=== PATIENT | male | born 1970 | race Caucasian/White ===

== ENCOUNTER → 2017-05-08 | Outpatient (CLI) | payer OTHER ==
[~2017-05-08] MED LIST: ADVIL200 M2 PO; ALLERGY RELIEF10 M3 PO; ASPIRIN81 M1 PO; BLOOD PRESSURE MED PO; CIPRO PO; CLARITIN10 M2 PO; EC-NAPROSYN500 MG PO; ECOTRIN81 M1 PO; FLAGYL PO; FLAGYL250 M1 PO; FLEXERIL10 MG PO; FLOMAX0.4 M1 PO; GUANFACINE HCL E2 MG PO; HCTZ PO; HYDROCHLOROTHIA25 MG PO; IBUPROFEN800 MG PO; LEVAQUIN PO; LISINOPRIL20 MG PO; LORTAB 7.5-5001 TAB PO; METAMUCIL1 PKT PO; MILK OF MAGNESIA PO; PHENERGAN25 M1 PO; PREVACID PO; PRINIVIL20 M1 PO; PRINIVIL40 MG PO; QUETIAPINE FUM300 MG PO; REVIA50 MG PO; SMZ/TMP DS 800/160; TYLENOL ARTHRITIS PO; TYLENOL325 M1 PO; VOLTAREN50 MG PO; WELLBUTRIN PO
--- NOTE | ~2017-05-08 | EKG ---
PATIENT: DULCE NESS UNIT #: [id number] Ventricular Rate: 60 BPM Atrial Rate: 60 BPM P-R Interval: 126 ms QRS Duration: 86 ms Q-T Interval: 366 ms QTC Calculation(Bezet): 366 ms P [place]: 29 degrees Calculated R [place]: 46 degrees Calculated T [place]: 38 degrees Diagnosis Line: Normal sinus rhythm Diagnosis Line: Normal ECG Diagnosis Line: When compared with ECG of 26-DEC-2012 08:21, Diagnosis Line: No significant change was found Diagnosis Line: Confirmed by MELECIO LIGHT MD ([id number]) on Diagnosis Line: 05/08/2017 3:32:03 PM INTERPRETING MD: EDVIN
--- NOTE | ~2017-05-08 | CR63 ---
[facility] A Service of [facility] & [facility] RADIOLOGY TEXT RESULTS PATIENT: DULCE NESS LOCATION: [facility] : 74 UNIT #: [id number] AGE: [address]: Kelvin Hollingsworth MD SEX: M ORDER DR: [id number] [facility] [address] [place], [place] [address] [id number] O MR#: [id number] Acc #: [id number] NAME: DULCE NESS : 1970 SEX: M STUDY DATE/TIME: 05/08/2017 11:34 UNIT: [facility] ROOM: STUDY DESCRIPTION: CR Chest 2 View Attending Physician: Kelvin Hollingsworth M.D. Referring Physician: Kelvin Hollingsworth M.D. Ordering Physician: Kelvin Hollingsworth M.D. Primary Care Physician: Neida Ashraf A.P.R.N. MEDICAL IMAGING REPORT This report is preliminary unless electronic signature is present EXAM Chest 2 views HISTORY 47-year-old male patient, preop right knee arthroscopy. Right medial meniscus tear. Hypertension. COMPARISON Chest, 09/03/2015. FINDINGS PA and lateral chest views show normal cardiac size and configuration. Hilar structures and mediastinal contours are preserved. Bilateral lungs are expanded and clear. Costophrenic angles are clear. IMPRESSION Negative and stable chest. Dictated by... Deyvi Ortiz M.D. THIS IS AN ELECTRONICALLY VERIFIED REPORT Deyvi Ortiz M.D. at 05/09/2017 8:08 AM ANGELA/mao TD: 05/08/2017 16:13 JOB #: [id number] MEDICAL IMAGING REPORT Page 1 of 1 COPY
[2017-05-08 12:02] LABS: HEMATOCRIT 41.6 % (38.0-50.0); HEMOGLOBIN 13.9 gm/dL (13.0-16.0); MEAN CELL VOLUME 85.1 FL (83-96); MEAN CORPUSCULAR HEMOGLOBIN 28.4 PG (28-34); MEAN CORPUSCULAR HGB CONC 33.4 g/dL (30-36); MEAN PLATELET VOLUME 8.7 FL (6.5-11.5); RED BLOOD COUNT 4.89 X10e (3.90-5.60); RED CELL DISTRIBUTION WIDTH 14.3 % (11.0-15.5); WHITE BLOOD COUNT 10.5 X10e3 (4.0-10.5)
[2017-05-08 12:03] LABS: URINE APPEARANCE CLEAR; URINE BILIRUBIN NEG (NEG); URINE BLOOD NEG (NEG); URINE COLOR YELLOW; URINE GLUCOSE NEG (NEG); URINE KETONE NEG (NEG); URINE LEUKOCYTE ESTERASE NEG (NEG); URINE NITRATE NEG (NEG); URINE PROTEIN NEG (NEG); URINE SPECIFIC GRAVITY 1.021 (1.003-1.035); URINE UROBILINOGEN 0.2 MG/DL (NEG)
[2017-05-08 12:19] LABS: URINE SOURCE CLEAN CATCH
[2017-05-08 12:20] LABS: CULTURE INDICATED? NO
[2017-05-08 13:53] LABS: BUN/CREATININE RATIO 20.83; CALCIUM SERUM 9.1 mg/dL (8.4-10.2); CREATININE SERUM 1.2 mg/dL (0.6-1.4); GLOM FILT RATE Estimated 72.6 mL/min (>60)
== END | disposition home or self-care (01) ==
LOC: CAMB 10:22
PROVIDERS: Orthopaedic Surgery
DX: Z01.818 Encounter for other preprocedural examination (principal); S83.241A Other tear of medial meniscus, current injury, right knee, initial encounter; I10 Essential (primary) hypertension; Z88.0 Allergy status to penicillin
CPT/HCPCS: 36415; 71020; 80048; 81003; 85027; 93005

== ENCOUNTER → 2017-05-14 | Day surgery (SDC) | payer OTHER ==
--- NOTE | ~2017-05-14 | OR ---
Unit #: [id number] #: [id number] Patient: DULCE NESS [id number] [address] [address] [id number] O MR#: [id number] NAME: DULCE NESS ROOM: Date of Procedure: 05/14/2017 Admission Date: 05/14/2017 Surgeon: Kelvin Hollingsworth M.D. : 1970 Attending Physician: Kelvin Hollingsworth M.D. Primary Care Physician: Neida Ashraf A.P.R.N. OPERATIVE REPORT PREOPERATIVE DIAGNOSIS Medial meniscal tear of the right knee. POSTOPERATIVE DIAGNOSIS Medial meniscal tear of the right knee. PROCEDURE PERFORMED Arthroscopic partial medial meniscectomy. ANESTHESIA General. ESTIMATED BLOOD LOSS Less than 25 mL. DESCRIPTION OF PROCEDURE The patient was brought to the operating room, given general anesthetic. Tourniquet was placed around the right thigh. The right leg was prepped and draped in a sterile fashion. The arthroscope was introduced through the inferolateral portal. The knee was visualized. Suprapatellar pouch was free of debris. Medial compartment was entered and there was a tear in the medial meniscus in the medial and anterior horns. This was removed with a shaver and then a basket. The remaining rim was probed and found to be stable. The anterior cruciate was intact. The lateral compartment, both meniscus and articular surfaces were intact. We again removed all the fluid from the knee. The joint was injected with 15 mL of 0.5% plain Marcaine. The tourniquet was released and a sterile dressing was applied. His general anesthetic reversed. Dictated by... Yelena Hunter/ruiz TD: 05/15/2017 05:28 JOB #: [id number] Unit #: [id number] #: [id number] Patient: DULCE NESS OPERATIVE REPORT Page 1 of 1 X Kelvin Hollingsworth MD X PROCEDURE OPERATIVE NOTE
== END | disposition home or self-care (01) ==
LOC: CSUR 05:54
DX: M23.211 Derangement of anterior horn of medial meniscus due to old tear or injury, right knee (principal); I10 Essential (primary) hypertension; F17.210 Nicotine dependence, cigarettes, uncomplicated; Z79.899 Other long term (current) drug therapy; Z88.0 Allergy status to penicillin; Z90.49 Acquired absence of other specified parts of digestive tract; Z98.890 Other specified postprocedural states
CPT/HCPCS: J2250; J2405; J3010